=== PATIENT | female | born 1950 | race Caucasian/White ===

== ENCOUNTER 2017-10-01 16:50 | Emergency (ER) | payer OTHER ==
--- NOTE | 2017-10-01 16:52 | PDOC ---
Rapid Medical Evaluation Time Seen by Provider: 10/01/17 16:51 Medical Evaluation: 10/01/17 16:51 The patient presents with a chief complaint of: left eyebrow from car door, no loc, tdap less than 5 yrs I have performed a brief in-person evaluation of this patient. Pertinent physical exam findings: 1cm lac to left eyebrow I have ordered the following: none The patient will proceed to the ED for further evaluation. Discharge Disposition - Diagnosis Laceration of eyebrow - Referrals - Patient Instructions - Post Discharge Activity
[2017-10-01 16:54] VITALS: BP 184/96; PULSE 113; TEMP 98.1; BMI 34.7
--- NOTE | 2017-10-01 17:20 | PDOC ---
History of Present Illness - General Chief Complaint: Laceration Stated Complaint: LACERATION Time Seen by Provider: 10/01/17 16:51 History Source: Patient Exam Limitations: No Limitations - History of Present Illness Initial Comments: 10/01/17 17:21 Patient states was getting out of car and door swung causing him to strike the lateral aspect of her left brow and incurring a laceration. States was mildly dazed at the time and it bled but was able to stop the bleeding with pressure. Denies LOC, denies drainage from nose or ears, denies any other injury. Timing/Duration: reports: 1-3 hours Severity: Yes: mild, moderate Associated Symptoms: reports: denies symptoms Past History - Travel Traveled outside of the country in the last 30 days: Yes Close contact w/someone who was outside of country & ill: Yes - Past Medical History Allergies/Adverse Reactions: Allergies Allergy/AdvReac Type Severity Reaction Status Date / Time No Known Allergies Allergy Verified 10/01/17 16:54 Home Medications: Ambulatory Orders Levothyroxine [Synthroid -] 125 mcg PO DAILY 10/01/17 COPD: No Other medical history: NONE - Suicide/Smoking/Psychosocial Hx Smoking History: Never smoked Hx Alcohol Use: No Drug/Substance Use Hx: No Substance Use Type: None Review of Systems - Review of Systems Able to Perform ROS?: Yes Is the patient limited Upper Sorbian proficient: Yes Constitutional: Yes: Symptoms Reported, See HPI, Malaise HEENTM: Yes: Symptoms Reported, See HPI, Other. No: Eye Pain Respiratory: No: Symptoms reported Musculoskeletal: No: Symptoms Reported Integumentary: Yes: Symptoms Reported, See HPI, Bruising (2cm lac to left brow) Neurological: Yes: Symptoms reported, See HPI, Headache All Other Systems: Reviewed and Negative *Physical Exam - Vital Signs Last Vital Signs Temp Pulse Resp BP Pulse Ox 98.1 F 113 H 20 184/96 98 10/01/17 16:50 10/01/17 16:50 10/01/17 16:50 10/01/17 16:50 10/01/17 16:50 - Physical Exam General Appearance: Yes: Nourished, Appropriately Dressed, Apparent Distress, Mild Distress HEENT: positive: LISSA, Normal ENT Inspection, TMs Normal (no hemotympanum, no drainage from nose or ears, no evidence of skull fracture), Pharynx Normal, Other (2cm verticle lac to left brow with no crepitusd or stepoff to brow/ orbit. ) Neck: negative: Tender Respiratory/Chest: positive: Lungs Clear Extremity: positive: Normal Capillary Refill Integumentary: positive: Normal Color, Swelling (midpoint left brow ), Bruising Neurologic: positive: election clerk II-XII NML intact, Fully Oriented, Alert, Normal Mood/ Affect, Normal Response, Motor Strength 5/5 Procedures - Laceration/Wound Repair Left Face Wound Length: to 2.5 cm Wound Explored: clean Wound's Depth, Shape: into muscle, linear Irrigated w/ Saline: Yes Betadine Prep: Yes Anesthesia: 1% Lidocaine w/ Epi Wound Repaired With: Sutures Suture Size/Type: 6:0 Number of Sutures: 6 Deep Layer Suture Size/Type: 5:0, gut Number of Deep Layer Sutures: 4 Progress Note - Progress Note Progress Note: Facial laceration repaired *DC/Admit/Observation/Transfer Diagnosis at time of Disposition: Laceration of eyebrow Qualifiers: Encounter type: initial encounter Laterality: left Qualified Code(s): S01.112A - Laceration without foreign body of left eyelid and periocular area, initial encounter - Discharge Dispostion Disposition: HOME Condition at time of disposition: Stable Admit: No - Referrals Referrals: Leigh Hyde MD [Primary Care Provider] - - Patient Instructions Printed Discharge Instructions: DI for Laceration Repair Additional Instructions: Keep wound clean and dry Avoid strenuous activity/exercise to create a hot or sweaty environment until sutures are removed Reapply bacitracin ointment 2 times a day until sutures are removed Return to emergency Department or private physician in 5-7 days for suture removal May use Tylenol or Motrin for pain relief Return immediately to emergency department for redness, swelling, pain, or signs of infection Your tetanus/diphtheria/pertussis booster was updated today - Post Discharge Activity
[2017-10-01] MEDS ORDERED: DIPHTH,PERTUSS(ACELL),TET 0.5 ML DISP.SYRIN IM ONE (17:22)
[2017-10-01] MEDS ORDERED: IBUPROFEN 400 MG TABLET (FP) PO ONE ×2 (17:49→17:52)
== END 2017-10-01 17:53 | disposition home or self-care (01) ==
LOC: JERFT 16:50 → JER 16:50 → JERFT 17:53
PROC: 0JQ10ZZ Repair Face Subcutaneous Tissue and Fascia, Open Approach (ICD-10-PCS; principal; 2017-10-01)
DX: S01.112A Laceration without foreign body of left eyelid and periocular area, initial encounter (principal); V48.4XXA Person boarding or alighting a car injured in noncollision transport accident, initial encounter; Y92.488 Other paved roadways as the place of occurrence of the external cause; Y93.89 Activity, other specified
CPT/HCPCS: 90715; 99281-25